=== PATIENT | female | born 1960 | race Caucasian/White ===

== ENCOUNTER 2017-03-12 13:08 | Emergency (ER) | payer OTHER ==
[2017-03-12 13:16] VITALS: BMI 19.7
--- NOTE | 2017-03-12 13:35 | PDOC ---
History of Present Illness - General History Source: Patient Exam Limitations: No Limitations <Keely Small - Last Filed: 03/12/17 16:08> - General History Source: Patient Exam Limitations: No Limitations - History of Present Illness Initial Comments: 03/12/17 13:59 The patient is a 56 year old female, with no significant past medical history, who presents to the emergency room complaining of 8 days of intermittent right flank pain that radiates to the RLQ. She notes that the pain has progressively worsened and became unbearable this morning describing it as 10/10 in severity. She denies any dysuria, hematuria, urinary changes. Denies fever, chills, nausea , vomiting. Allergies: none reported <Josee Nelson - Last Filed: 03/12/17 16:14> - General Chief Complaint: Pain, Acute Stated Complaint: PAIN Time Seen by Provider: 03/12/17 13:33 Past History - Past Medical History Anemia: No Asthma: No Cancer: No Cardiac Disorders: No CVA: No COPD: No CHF: No Dementia: No Diabetes: No GI Disorders: No Disorders: No HTN: No Hypercholesterolemia: No Liver Disease: No Seizures: No Thyroid Disease: No - Psycho/Social/Smoking Cessation Hx Anxiety: No Suicidal Ideation: No Smoking History: Current every day smoker Number of Cigarettes Smoked Daily: 5 Information on smoking cessation initiated: Yes 'Breaking Loose' booklet given: 03/12/17 Hx Alcohol Use: No Drug/Substance Use Hx: No Substance Use Type: None <Keely Small - Last Filed: 03/12/17 16:08> <Josee Nelson - Last Filed: 03/12/17 16:14> - Past Medical History Allergies/Adverse Reactions: Allergies Allergy/AdvReac Type Severity Reaction Status Date / Time No Known Allergies Allergy Verified 03/12/17 13:16 Home Medications: Ambulatory Orders No Home Medications 0 dose .ROUTE UTDICT 01/07/14 Methocarbamol [Robaxin -] 500 mg PO TID PRN #21 tablet 03/12/17 Naproxen [Naprosyn -] 500 mg PO BID PRN #14 tablet 03/12/17 Review of Systems - Review of Systems Able to Perform ROS?: Yes Comments:: 03/12/17 13:59 GENERAL/CONSTITUTIONAL: No: fever, chills, weakness, loss of appetite. HEAD, EYES, EARS, NOSE AND THROAT: No: change in vision, ear pain, discharge, sore throat, throat swelling. CARDIOVASCULAR: No: chest pain, lightheadedness, palpitations, syncope RESPIRATORY: No: cough, shortness of breath, wheezing, hemoptysis, stridor. GASTROINTESTINAL: +right sided flank pain that radiates to the RLQ. No: nausea, vomiting, diarrhea, rectal bleeding, constipation. GENITOURINARY: No: dysuria, hematuria, frequency, urgency, flank pain. MUSCULOSKELETAL: No: back pain, neck pain, joint pain, muscle swelling or pain SKIN: No: lesions, pallor, rash or easy bruising. NEUROLOGIC: No: headache, vertigo, paresthesias, weakness ENDOCRINE: No: unexplained weight gain or loss HEMATOLOGIC/LYMPHATIC: No: anemia, easy bleeding, swelling nodes <Josee Nelson - Last Filed: 03/12/17 16:14> *Physical Exam - Vital Signs Last Vital Signs Temp Pulse Resp BP Pulse Ox 98.3 F 71 20 127/79 100 03/12/17 13:13 03/12/17 13:13 03/12/17 13:13 03/12/17 13:13 03/12/17 13:13 <Keely Small - Last Filed: 03/12/17 16:08> - Vital Signs Last Vital Signs Temp Pulse Resp BP Pulse Ox 98.3 F 71 20 127/79 100 03/12/17 13:13 03/12/17 13:13 03/12/17 13:13 03/12/17 13:13 03/12/17 13:13 - Physical Exam Comments: 03/12/17 13:59 GENERAL: The patient is in no acute distress. LUNGS: Breath sounds equal, clear to auscultation bilaterally. No wheezes, and no crackles. HEART:Regular rate and rhythm, normal S1 and S2 without murmur, rub or gallop. ABDOMEN: +RLQ tenderness on palpation. Soft, nontender, normoactive bowel sounds. No guarding, no rebound. EXTREMITIES: Normal range of motion, no edema. No clubbing or cyanosis. No erythema, or tenderness. NEUROLOGICAL: Cranial nerves II through XII grossly intact. Normal speech. No focal neurological deficits. MUSCULOSKELETAL: +CVA tenderness SKIN: Warm, Dry, normal turgor, no rashes or lesions noted. <Josee Nelson - Last Filed: 03/12/17 16:14> ED Treatment Course - LABORATORY CBC & Chemistry Diagram: 03/12/17 13:56 03/12/17 13:56 <Keely Small - Last Filed: 03/12/17 16:08> - LABORATORY CBC & Chemistry Diagram: 03/12/17 13:56 03/12/17 13:56 - RADIOLOGY Radiograph Interpretation: 03/12/17 16:14 EXAM#: TYPE/EXAM: RESULT: [id number] CT/SPIRAL- RENAL-STONE CT History: rule out kidney stone CT Scan of abdomen and pelvis without oral or IV contrast Study is limited because of lack of patient's body fat and lack of IV contrast The liver, spleen, pancreas and adrenal glands are unremarkable. No gallstones are identified. There is no evidence of retroperitoneal lymphadenopathy or abdominal aortic aneurysm. No gross evidence of hydronephrosis or renal calculi or renal masses The urinary bladder and uterus are unremarkable. Small lipoma musculature right upper thigh There is no evidence of bowel obstruction. The appendix is seen on coronal images 39 through 41 There are no inflammatory changes of the appendix or colon. No fluid collections are identified. Impression: No gross evidence of acute findings but study is limited by lack of oral and IV contrast. Reported By: Madhu Schneider MD 03/12/17 1537 <Josee Nelson - Last Filed: 03/12/17 16:14> Medical Decision Making - Medical Decision Making 03/12/17 13:35 A portion of this note was documented by scribe services under my direction. I have reviewed the details of the note, within reason, and agree with the documentation with the following case summary and management plan written by me. Nursing documentation reviewed and incorporated into medical decision making 03/12/17 13:48 This is a 56 yo F no significant past medical history who presents to the ER with a complaint of RLQ tenderness and Right flank pain The patient states that she was in her usual state of health until 8 days ago when she noticed RLQ pain Pain is severe, rated 10/10 but today 20/10 No associated fevers or chills No nausea, vomiting No diarrhea No dysuria, no hematuria No prior episodes like this No trauma to the back DD: Renal colic, pyelonephritis, musculoskeletal pain 03/12/17 14:55 Laboratory Tests 03/12/17 03/12/17 03/12/17 13:56 13:56 13:56 WBC 4.0 Hct 40.1 MCV 91.3 BUN 17 Creatinine 0.8 Urine Blood Negative Urine Nitrite Negative Ur Leukocyte Esterase Trace 03/12/17 15:54 CT demonstrates: No acute findings, Appendix is identified and appears normal Will discharge to home Pt given copies of all results Follow up with PMD I discussed the physical exam findings, ancillary test results and final diagnoses with the patient. I answered all of the patient's questions. The patient was satisfied with the care received and felt comfortable with the discharge plan and treatment plan. The patient will call their primary care physician within 24 hours to arrange follow-up and will return to the Emergency Department with any new, persistent or worsening symptoms. <Keely Small - Last Filed: 03/12/17 16:08> *DC/Admit/Observation/Transfer - Discharge Dispostion Admit: No <Keely Small - Last Filed: 03/12/17 16:08> - Attestations Scribe Attestion: 03/12/17 13:59 Documentation prepared by MARCIA Schaffer, acting as medical videographer for Keely Small MD. <Josee Nelson - Last Filed: 03/12/17 16:14> Diagnosis at time of Disposition: Abdominal pain Qualifiers: Abdominal location: right lower quadrant Qualified Code(s): R10.31 - Right lower quadrant pain - Discharge Dispostion Disposition: HOME Condition at time of disposition: Stable - Prescriptions Prescriptions: Naproxen [Naprosyn -] 500 mg PO BID PRN #14 tablet PRN Reason: Pain Methocarbamol [Robaxin -] 500 mg PO TID PRN #21 tablet PRN Reason: Pain - Referrals Referrals: Naseem Reno MD [Primary Care Provider] - - Patient Instructions Printed Discharge Instructions: DI for Abdominal Pain-Adult Additional Instructions: Ms. Anguiano Thank you for coming in to the ER today Please take medications as prescribed for pain Please monitor yourself for any new symptoms IF you have fevers, chills, nausea, vomiting, diarrhea, please return to the ER for evaluation You should follow up with your primary care physician within 1 week
[2017-03-12] MEDS ORDERED: SODIUM CHLORIDE 1,000 ML IV STA (13:45)
[2017-03-12] MEDS ORDERED: KETOROLAC TROMETHAMINE 30 MG/1 ML VIAL IVPUSH ONE (13:45)
[2017-03-12] MEDS ORDERED: KETOROLAC TROMETHAMINE 30 MG/1 ML VIAL ONE (14:00)
[2017-03-12 14:18] LABS: EOSINOPHIL 1.2 % (0-4.5); MCH 30.2 pg (25.7-33.7); MCHC 33.1 g/dl (32.0-36.0); MEAN CELL VOLUME 91.3 fl (80-96); MEAN PLT VOLUME 9.2 fl (7.5-11.1); NEUTROPHILS 46.3 % (42.8-82.8); PLATELET COUNT 219 K/MM3 (134-434); RDW 14.1 % (11.6-15.6)
[2017-03-12 14:25] LABS: URINE APPEARANCE CLEAR; URINE BILIRUBIN NEGATIVE (NEGATIVE); URINE BLOOD NEGATIVE (NEGATIVE); URINE COLOR LTYELLOW; URINE GLUCOSE (UA) NEGATIVE (NEGATIVE); URINE KETONE NEGATIVE (NEGATIVE); URINE LEUK ESTERASE TRACE (NEGATIVE); URINE NITRITE NEGATIVE (NEGATIVE); URINE PROTEIN NEGATIVE (NEGATIVE); URINE UROBILINOGEN NEGATIVE mg/dL (0.2-1.0)
[2017-03-12 14:48] LABS: ALBUMIN 4.1 g/dl (3.4-5.0); ALK PHOS 75 U/L (45-117); ANION GAP 8 (8-16); BILIRUBIN,TOTAL 1.1 mg/dL (0.2-1.0); CALCIUM 9.5 mg/dL (8.5-10.1); CO2 30 mmol/L (21-32); CREATININE 0.8 mg/dL (0.55-1.02); GLUCOSE,RANDOM 81 mg/dL (74-106); SGPT/ALT 34 U/L (12-78); TOT PROT 7.1 g/dl (6.4-8.2)
[2017-03-12 14:49] LABS: SGOT/AST 28 U/L (15-37)
[2017-03-12 15:04] LABS: URINE RBC <1 /hpf (0-3); URINE WBC <1 /hpf (3-5)
[2017-03-12 16:22] VITALS: BP 132/89; PULSE 66; TEMP 98.4
== END 2017-03-12 16:23 | disposition home or self-care (01) ==
LOC: JER 13:08
PROC: 3E0333Z Introduction of Anti-inflammatory into Peripheral Vein, Percutaneous Approach (ICD-10-PCS; principal; 2017-03-12)
DX: R10.31 Right lower quadrant pain (principal); F17.210 Nicotine dependence, cigarettes, uncomplicated
CPT/HCPCS: 36415; 74176; 80053; 81003; 81015; 85025; 87086; 96374; 99283-25

== ENCOUNTER 2021-03-10 15:10 | Emergency (ER) | payer OTHER ==
[2021-03-10 15:48] VITALS: BP 129/73; PULSE 73; TEMP 98; BMI 19.2
== END 2021-03-10 16:42 | disposition home or self-care (01) ==
LOC: JERFT 15:10
PROC: 0H92XZZ Drainage of Right Ear Skin, External Approach (ICD-10-PCS; principal; 2021-03-10)
DX: H60.02 Abscess of left external ear (principal)
CPT/HCPCS: 10060; 99282-25

== ENCOUNTER 2022-09-20 12:39 | Emergency (ER) | payer MEDICARE, OTHER ==
[2022-09-20 12:59] VITALS: BP 133/82; PULSE 65; RESP 120; TEMP 97.8; BMI 17.2
== END 2022-09-20 18:37 | disposition left against medical advice (07) ==
LOC: JER 12:39
DX: M54.50 Low back pain, unspecified (principal)
CPT/HCPCS: 99281-25